=== PATIENT | male | born 1985 | race Two or more races ===

== ENCOUNTER 2025-04-22 15:12 | Emergency (ER) | payer OTHER, SELFPAY ==
[2025-04-22 15:47] VITALS: BP 119/75; PULSE 89; RESP 18; TEMP 36.9; O2SAT 99
--- NOTE | 2025-04-22 15:50 | XR_ITS ---
Examination: CT brain head without contrast. 2-D sagittal coronal reconstructions Date and time of exam:April 22, 2025 1556 hours INDICATIONS: Patient fell today with injury to the head, head pain CTDI: vol (mGy):49.5 DLP: (mGycm):997 Technique: Multiple CT axial sections of the brain have been obtained, 5 mm slice thickness. Contrast has not been administered. 2-D sagittal, coronal reconstructions have been obtained Low dose protocols were performed. One or more of the following dose reduction techniques were used; automated exposure control, adjustment of the mA and/or KV according to patient size, use of iterative reconstruction technique. Findings: No significant ventricular enlargement. Intra-axial or extra-axial hemorrhage density is not seen. No mass effect or midline shift Basal cisterns are not remarkable. Fourth ventricle is midline. Cranial vault intact. Impression: Negative for acute hemorrhage, mass effect or midline shift
--- NOTE | 2025-04-22 15:50 | XR_ITS ---
Examination: Lumbar spine 3 views Technique one AP lateral, lateral lower lumbar spine 3 views INDICATIONS: Injury to the back at work today, lower back pain FINDINGS: Large amount of stool in the colon Air distended small bowel loops in the central abdomen Calcifications in the upper left abdomen which may be in the pancreas No acute lumbar fracture Moderate disc narrowing L4-L5 Transitional L5 vertebral body IMPRESSION: No definite acute lumbar fracture Moderate degenerative disc disease L4-L5 Calcifications in left upper abdomen which may be in the pancreas, clinical correlation advised
--- NOTE | 2025-04-22 15:51 | EDNOTE_ITS ---
ED Fall Injury RME/HPI General Chief Complaint: Fall Stated Complaint: HIT BACK OF HEAD FROM FALL AT WORK Time Seen by Provider: 04/22/25 15:33 Arrival date/time: 04/22/25 15:12 RME / HPI RME / HPI Narrative: 39-year-old male patient with no past medical history except for diabetes mellitus, came in for evaluation regarding fall. 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 Headache is described as dull ache, severity moderate. Low back pain is described as dull ache, severity mild. Patient is ambulatory. Denies any LOC no nausea no vomiting no neck pain. No medication was taken prior to arrival. Related Data Previous Rx's ?Medication ?Instructions ?Recorded ibuprofen 600 mg tablet 600 mg PO Q6HR PRN PAIN #40 tabs 06/10/17 blood sugar diagnostic (True #100 ea 10/09/22 Metrix Glucose Test Strip) blood-glucose meter (True Metrix #1 ea 10/09/22 Glucose Meter kit) flash glucose scanning reader #1 ea 10/09/22 (FreeStyle Adina 2 [place]) flash glucose sensor (FreeStyle #1 ea 10/09/22 Adina 2 Sensor kit) glucagon HCl 1 mg solution for 1 mg subcut Q20M PRN hy poglycemia 10/09/22 injection (Glucagon (HCl) #1 ea Emergency Kit) insulin glargine 100 unit/mL (3 30 unit (0.3 mL) subcu t QPM #15 mL 10/09/22 mL) subcutaneous pen (Lantus Solostar U-100 Insulin) lancets 30 gauge and blood glucose #200 ea 10/09/22 strips combo pack metformin 500 mg tablet 500 mg PO BIDWMEAL 30 days # 60 tabs 10/09/22 pen needle, diabetic 30 gauge x #100 ea 10/09/22 3/16 ibuprofen 800 mg tablet 800 mg PO Q8H PRN pain #30 t abs 04/22/25 Allergies Allergy/AdvReac Type Severity Reaction Status Date / Time No Known Allergies Allergy Verified 04/22/25 15:17 Review of Systems Review of Systems Narrative Review of Systems: Review of system reviewed and within normal limits except mentioned in HPI ED Exam Narrative Physical exam: VITAL SIGNS: Reviewed. GENERAL APPEARANCE: Alert and interactive, follows commands, no acute distress, HEAD AND FACE: Non-traumatic. Posterior occipital tenderness, with contusion ENT: PERRL, pink conjunctivitis, eyelid no trauma, Mucous membrane moist. NECK: Supple, nontender, no nuchal rigidity. CHEST: No tenderness, no crepitus, no paradoxical movement, no retractions. LUNGS: Clear, well ventilated, symmetric, no rales, no wheezing, no ronchi, no stridor, good breath sounds bilaterally. HEART: Regular rate, regular rhythm, no murmur, no gallops. ABDOMEN: Soft, positive bowel sounds, nondistended, no guarding, nontender, no rebound, no masses, RECTAL: Deferred. GENITAL: Deferred. NEUROLOGICAL: Gross motor function intact sensory function intact, Appropriate for age. MUSCULOSKELETAL: low back tenderness, full range of motion. EXTREMITIES: Nontender, full range of motion. SKIN: Color pink, dry, no rash, no lacerations, no abrasions, no contusions. LYMPHATICS: Deferred. Course Quality Measures none Orders Category Date Time Status CT head/brain wo con Stat Exams 04/22/25 15:50 Completed XR lumbar spine 2-3V Stat Exams 04/22/25 15:50 Completed Acetaminophen Tab [Tylenol ES Tab] Med 04/22/25 15:50 Discontinued 1,000 mg PO X1 ONE Vital Signs Vital signs: Vital Signs Temperature 98.5 F 04/22/25 15:47 Pulse Rate 89 04/22/25 15:47 Respiratory Rate 18 04/22/25 15:47 Blood Pressure 119/75 04/22/25 15:47 Pulse Oximetry (%) 99 04/22/25 15:47 Oxygen Delivery Method Room Air 04/22/25 15:47 Fall MDM Narrative MDM Narrative:: 39-year-old male patient with no past medical history except for diabetes mellitus, came in for evaluation regarding fall. 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 Headache is described as dull ache, severity moderate. Low back pain is described as dull ache, severity mild. Patient is ambulatory. Denies any LOC no nausea no vomiting no neck pain. No medication was taken prior to arrival. CT scan of the head came back unremarkable. X-ray of the lumbar spine also came back unremarkable. Results discussed with the patient. Patient appears nontoxic and hemodynamically stable .Decision to discharge the patient. The patient/family was given an opportunity to ask questions and understood their discharge instructions. Discharge instructions specifically included follow up provider and time frame, current and/or new medications and possible side effects, indications for sooner follow up or return to the emergency department, and the expected course of current diagnosis. Patient reports feeling better as well and giving evidence of significant clinical improvement, I believe patient is now a candidate for discharge. Patient data External records reviewed:: None Clinical information provided by:: patient Social determinants that could affect healthcare access:: none Patient has the following chronic illnesses:: Diabetes mellitus How is presenting disease/condition affected by chronic disease/condition?: uneffected by Evaluation data The following diagnostics were reviewed and interpreted by me:: radiology exam(s) Lab and/or radiology exams considered but not ordered:: None Interpretation Summary: See results MDM Medications / Prescriptions Medications or Prescriptions considered but not ordered:: None Medication administrations:: Medication Administration History Discontinued Medications Acetaminophen (Acetaminophen 500 Mg Tablet) 1,000 mg PO X1 ONE Stop: 04/22/25 15:51 Last Admin: 04/22/25 16:01 Dose: 1,000 mg Documented By: RICHMOND Tylenol Consultations Consultation(s) initiated? (list below): No Diagnosis Fall Differential Diagnosis: other (Scalp contusion, low back pain, status post, work-related injury) Most likely diagnosis given after review of the tests above:: Scalp contusion lumbar pain status post fall Admission Indicated Admission indicated?: not indicated Admission Request Was there a request for admission?: No Disposition Plan Disposition Plan: Discharge Discharge Attestation Discharge Attestation: The patient was given an opportunity to ask questions and understood the discharge instructions. Discharge instructions specifically effects, indications for sooner follow up or return to the emergency department, and the expected course of current diagnosis. Patient condition: Stable Discharge Plan Plan Patient Disposition: HOME (Self Care) Discharge Disposition comment: Stable Prescriptions/Referrals Prescriptions/Med Rec: New ibuprofen 800 mg tablet 800 mg PO Q8H PRN (Reason: pain) Qty: 30 0RF No Action ibuprofen 600 MG tablet 600 mg PO Q6HR PRN (Reason: PAIN) Qty: 40 0RF insulin glargine [Lantus Solostar U-100 Insulin] 100 unit/mL (3 mL) insulin pen 30 unit subcut QPM Qty: 15 3RF (DME) blood-glucose meter [True Metrix Glucose Meter] Kit See Rx Instructions .Route Qty: 1 0RF Rx Instructions: As directed (DME) True Metrix Glucose Test Strip Strip See Rx Instructions .Route Qty: 100 0RF Rx Instructions: As directed (DME) FreeStyle Adina 2 [place] Misc See Rx Instructions .Route Qty: 1 0RF Rx Instructions: As directed (DME) FreeStyle Adina 2 Sensor Kit See Rx Instructions .Route Qty: 1 12RF Rx Instructions: As directed (DME) lancets-blood glucose strips 30 gauge combo pack See Rx Instructions .Route Qty: 200 0RF Rx Instructions: As directed (DME) pen needle, diabetic 30 gauge x 3/16 needle See Rx Instructions .Route Qty: 100 0RF Rx Instructions: As directed Glucagon (HCl) Emergency Kit 1 mg recon soln 1 mg subcut Q20M PRN (Reason: hypoglycemia) Qty: 1 0RF Rx Instructions: until target blood sugar attained metformin 500 mg tablet 500 mg PO BIDWMEAL 30 Days Qty: 60 2RF Referrals: Hamida Cole FNP [Primary Care Provider] - In 1 week Problem List Clinical Impression: Contusion of scalp, Back pain, Fall Patient/Caregiver Discharge Instructions Discharge Activity: activity as tolerated Education Materials: Back Safety: Turning, ED Scalp Contusion Additional Instructions: Thank you for the opportunity for serving you today. You are stable for discharged . You are advised to: Follow-up with your Worker's CompGisela FATIMA in 1 to 2 days Return to ED for worsening of symptoms Increase oral fluids Take medication as prescribed Print Language: Romansh Stand Alone Forms: Divya Award Info., Patient Portal Info Letter
[2025-04-22] MEDS: ACETAMINOPHEN 500 MG TABLET 1000 MG PO (16:01)
[2025-04-22 17:29] VITALS: BP 132/70; PULSE 78; RESP 18; TEMP 36.7; O2SAT 99
== END 2025-04-22 17:30 | disposition home or self-care (01) ==
PROVIDERS: Emergency Provider Emergency Medicine; PCP Nurse Practitioner Family
DX: S00.03XA Contusion of scalp, initial encounter (principal); Y99.0 Civilian activity done for income or pay; W19.XXXA Unspecified fall, initial encounter; E11.9 Type 2 diabetes mellitus without complications; M51.369 Other intervertebral disc degeneration, lumbar region without mention of lumbar back pain or lower extremity pain
CPT/HCPCS: 70450; 72100; 99284; A9270